=== PATIENT | female | born 1990 | race Caucasian/White ===

== ENCOUNTER 2023-07-24 04:53 | Emergency (ER) | payer OTHER, SELFPAY ==
[2023-07-24 04:53] VITALS: BMI 48.9
[2023-07-24 04:54] VITALS: BP 150/93
[2023-07-24 05:53] LABS: COVID-19 Antigen Negative (Negative)
--- NOTE | 2023-07-24 06:45 | ED.GENMED ---
History of Present Illness
General
Chief Complaint: Breathing Problem
Source: patient
Time Seen by Provider: 07/24/23 06:39
Travel History
Have you had any contact with someone who has COVID-19?: No
Do you have any symptoms of coronavirus? Fever > 100 degrees, chills, cough, shortness of breath, sore throat, loss of taste or smell, muscle aches, or headache?: Yes
Symptoms:: cough, SOB,
History of Present Illness
History of Present Illness:
33-year-old female presents to the emergency room complaining of cough, congestion and some palpitations. Symptoms began over the weekend. Seem to last during the night last. She denies any fever. She is not short of breath. No sick contacts
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
Past History
Past History
ED Past Medical History: Psychiatric
ED Past Surgical History: Gynecological
Social History
Tobacco: Non-smoker
Alcohol: None
Drug: None
Personal:
Living: with family
Phy Exam
Physical Exam
Physical Exam:
General: Awake, Alert, Oriented X3. No acute distress.
Vitals: unremarkable
Head: Atraumatic
Eyes: Pupils equal, EOMI
Throat: Airway intact, no exudates
Neck: Trachea midline
Lungs: Mild expiratory wheezing
Heart: Regular rate, no murmurs
Abd: Soft, Nontender, No pulsatile mass
Neuro: Nonfocal
Skin: Warm, dry, no rash
Extremities: pulses equal b/l, no edema
Course
Orders/Labs/Results
Orders:
Orders
07/24/23 05:02
Electrocardiogram (*1) Urgent
Reason for Study: Tachycardia
Cardiology Consult: Unknown
EKG- Treatment ONCE
Chest [CR Chest - 2 Views ] Urgent
Comment:
Reason For Exam: cough, SOB
07/24/23 05:15
COVID-19 Antigen Urgent
Source: Nasal Swab
Influenza A+B Rapid Molecular Urgent
SIENNA Source: Nasal Swab
Specimen Description:
07/24/23 06:44
Ipratropium/Albuterol Sulfate [Duoneb] 3 ml INH R NOW STA
Vital Signs
Initial and Last Documented VS:
Initial Vital Signs
Temp Pulse Resp BP Pulse Ox
99.2 F 108 26 150/93 93
07/24/23 04:54 07/24/23 04:54 07/24/23 04:54 07/24/23 04:54 07/24/23 04:54
Last Documented Vital Signs
Temp Pulse Resp BP Pulse Ox
99.2 F 95 25 150/93 99
07/24/23 04:54 07/24/23 07:30 07/24/23 07:30 07/24/23 04:54 07/24/23 07:15
MDM/Problems Addressed
Differential Diagnosis Includes:
Bronchitis, bronchospasm, influenza, COVID
MDM/Problems Addressed:
Patient presents with URI symptoms. She has a negative COVID and negative flu test. I do not see any obvious infiltrate on chest x-ray. Will treat with bronchodilator.
*Radiology
Radiology exam reviewed: preliminary read by ED provider (Chest x-ray reviewed by myself I see no acute disease)
*Critical Care Note
Total Time (30-74mins, 75-104mins- exclusive of procedures): Not Applicable
ED Attending Note
-
Portions of this chart may have been created with voice recognition software.� Occasional wrong word or��sound alike� substitutions may have occurred due to the inherent limitations of voice recognition software.
Discharge Plan
Departure
Patient Disposition: Home (Routine Discharge)
Date of Disposition: 07/24/23
Time of Disposition: 07:31
Patient with high blood pressure during this ER visit?: Yes
Condition: Good
Discharge Problem:
Acute bronchitis
Instructions: Acute Bronchitis, Adult (DC), BLOOD PRESSURE
Prescriptions:
New
albuterol sulfate [ProAir HFA] 90 mcg/actuation HFA aerosol inhaler
2 puff inhalation Q4HPRN PRN (Reason: shortness of breath) Qty: 6.7 0RF
No Action
escitalopram oxalate [Lexapro] 5 mg Tablet
5 mg PO DAILY
Referrals:
UNKNOWN - PT NOT,INTERVIEWE [Family Provider] -
Interventions
Interventions:
*Risk Screen - Suicide Last Done: 07/24/23 04:54
*General Assessment Last Done: 07/24/23 04:54
*Neglect/Abuse Screening Last Done: 07/24/23 04:54
ED- Fall Risk Assessment Last Done: 07/24/23 04:54
*ED COVID-19 Vaccine History Last Done: 07/24/23 04:54
*Nursing Disposition Last Done: 07/24/23 07:43
ED- Cardiac Assessment Last Done: 07/24/23 05:52
ED- Pulmonary Assessment Last Done: 07/24/23 05:52
Discharge Date and Time
Discharge Date/Time: 07/24/23 07:44
Print Language: YI
[2023-07-24] MEDS: DUONEB 3 ML INH (07:02)
== END 2023-07-24 07:44 | disposition home or self-care (01) ==
LOC: EMR 04:53
PROVIDERS: Emergency Medicine; EMERGENCY PHYSICIAN Emergency Medicine
DX: J20.9 Acute bronchitis, unspecified (principal); R00.2 Palpitations; R03.0 Elevated blood-pressure reading, without diagnosis of hypertension
CPT/HCPCS: 99283; 94640; 71046; 87502; 87811; 93005